=== PATIENT | male | born 1990 | race Caucasian/White ===

== ENCOUNTER 2022-10-11 07:13 | Emergency (ER) | payer OTHER ==
[~2022-10-11] VITALS: Ht 165.1 cm; Wt 65.0 kg
[2022-10-11 07:35] VITALS: BP 132/74
== END 2022-10-11 07:43 ==
LOC: ER 07:13
DX: S09.8XXA Other specified injuries of head, initial encounter (principal); F17.210 Nicotine dependence, cigarettes, uncomplicated; X58.XXXA Exposure to other specified factors, initial encounter; Y93.89 Activity, other specified; Y92.89 Other specified places as the place of occurrence of the external cause
CPT/HCPCS: 99283